=== PATIENT | male | born 1990 | race African-American/Black ===

== ENCOUNTER 2018-05-01 07:06 | Emergency (ER) | payer MEDICAID, OTHER ==
[~2018-05-01] VITALS: Ht 170.2 cm; Wt 81.6 kg
[2018-05-01] MEDS ORDERED: NKM (07:21)
[2018-05-01 07:23] VITALS: BP 132/81
--- NOTE | 2018-05-01 07:25 | NUR ---
ED Nurse Note: Patient present at ER c/o coughing for a week with thick and yellow mucus and 6/10 sore throat. patient aao x4 and calm.
[2018-05-01] MEDS ORDERED: Albuterol ud Inhalation HHN ONE (07:45)
--- NOTE | 2018-05-01 07:45 | Emergency Room Report ---
History of Present Illness General Chief Complaint: Upper Respiratory Illness Source: Patient Present Illness HPI This patient has had a week of rhinorrhea, nasal congestion, cough and sore throat. He denies ear pain. He denies headache or neck pain. He denies chest pain. He had subjective fever last night. He did take Motrin. He did not get the influenza vaccination. He denies blurry vision. He has no other complaints. Allergies: Coded Allergies: No Known Allergies (Unverified , 05/01/18) Patient History Past Medical History: see triage record, asthma - as a child Social History: Denies: smoking, alcohol use, drug use Reviewed Nursing Documentation: PMH: Agreed; PSxH: Agreed Nursing Documentation-PMH Past Medical History: No Stated History Review of Systems All Other Systems: negative except mentioned in HPI Physical Exam Vital Signs Date Time Temp Pulse Resp B/P (MAP) Pulse Ox O2 Delivery O2 Flow Rate FiO2 05/01/18 07:19 98.1 92 16 132/81 96 Room Air Sp02 EP Interpretation: reviewed, normal General Appearance: no apparent distress, alert, GCS 15, non-toxic Head: normocephalic, atraumatic Eyes: bilateral eye normal inspection, bilateral eye PERRL ENT: hearing grossly normal, no angioedema, normal voice, TMs + canals normal, uvula midline, moist mucus membranes, nasal congestion, tonsillar swelling, pharyngeal erythema, tonsillar exudate Neck: full range of motion, supple, supple/symm/no masses Respiratory: chest non-tender, lungs clear, normal breath sounds, no respiratory distress, no retraction, no accessory muscle use, speaking full sentences Cardiovascular #1: regular rate, rhythm, no edema Gastrointestinal: normal bowel sounds, non tender, soft, non-distended, no guarding, no rebound Rectal: deferred Genitourinary: normal inspection, no CVA tenderness Musculoskeletal: back normal, gait/station normal, normal range of motion, non- tender Neurologic: alert, oriented x3, responsive, motor strength/tone normal, sensory intact, speech normal Psychiatric: judgement/insight normal, memory normal, mood/affect normal, no suicidal/homicidal ideation Skin: normal color, no rash, warm/dry, well hydrated Medical Decision Making Diagnostic Impression: Primary Impression: Tonsillitis Additional Impressions: Pharyngitis Reactive airway disease ER Course This patient has a clinical presentation consistent with tonsillitis and pharyngitis. There is no evidence of peritonsillar abscess or deep neck abscess. There is no airway edema. Patient has a history of asthma and has a touch of wheezing with coughing on physical exam. The patient was given albuterol nebulizer treatments. The patient was also given prednisone orally. The patient had significant improvement in subjective shortness of breath. The patient's lung exam improved significantly. I will also treat the patient with a course of antibiotics as this has been shown to improve the course of an asthma exacerbation and also given the tonsillitis found on PE. The patient was given close return precautions and followup instructions. Influenza negative Chest X-Ray Diagnostic Results Chest X-Ray Diagnostic Results : Chest X-Ray Ordered: Yes # of Views/Limited/Complete: 1 View Indication: Other - cough Interpretation: no consolidation, no effusion, no pneumothorax, no acute cardiopulmonary disease Impression: No acute disease Electronically Signed by: Brunilda Marion DO Last Vital Signs Date Time Temp Pulse Resp B/P (MAP) Pulse Ox O2 Delivery O2 Flow Rate FiO2 05/01/18 07:23 92 16 Room Air 05/01/18 07:23 98.1 132/81 96 Status: improved Disposition: HOME, SELF-CARE Condition: Improved Brunilda Marion DO May 01, 2018 07:45
--- NOTE | 2018-05-01 08:00 | NUR ---
ED Nurse Note: called RT to remind about breathing tx. RT will come down soon.
--- NOTE | 2018-05-01 08:47 | Diagnostic Imaging Report ---
Indication: Cough Technique: One view of the chest Comparison: none Findings: Lungs and pleural spaces are clear. Heart size is normal Impression: No acute process
[2018-05-01] MEDS ORDERED: ALBUTEROL SULF8.5 GM INH (09:10)
[2018-05-01] MEDS ORDERED: PREDNISONE20 MG ORAL (09:10)
[2018-05-01] MEDS ORDERED: IBUPROFEN800 MG ORAL (09:10)
[2018-05-01] MEDS ORDERED: AUGMENTIN 875-1 EAC1 ORAL (09:10)
[2018-05-01 09:27] VITALS: BP 130/83
--- NOTE | 2018-05-01 09:28 | NUR ---
ED Nurse Note: Patient is being d/c from medical care. Patient awake, alert, oriented x 4. D/C instruction given. Prescriptions sent electronically. All questions were answered. Ambulated out with all his belongings, accompained by mom.
== END 2018-05-01 09:29 | disposition home or self-care (01) ==
LOC: EMR 08:10
DX: J03.90 Acute tonsillitis, unspecified (principal); J02.9 Acute pharyngitis, unspecified; J45.909 Unspecified asthma, uncomplicated
CPT/HCPCS: 71045; 86710; 94640; 99284; J7512

== ENCOUNTER 2019-02-04 09:00 | Emergency (ER) | payer OTHER ==
[~2019-02-04] VITALS: Ht 170.2 cm; Wt 68.0 kg
[~2019-02-04 09:00] MED LIST: ALBUTEROL SULF8.5 GM INH; AUGMENTIN 875-1 EAC1 ORAL; IBUPROFEN800 MG ORAL; NKM; PREDNISONE20 MG ORAL
--- NOTE | 2019-02-04 09:17 | NUR ---
ED Nurse Note: Patient arrived to ED from home, complaining of flu-like symptoms for the last 3 days. Patient currently afebrile, no nausea or vomiting.
[2019-02-04 09:19] VITALS: BP 134/83
[2019-02-04] MEDS ORDERED: Azithromycin 250mg tab ORAL ONE (09:30)
[2019-02-04] MEDS ORDERED: Pseudoephedrine 30mg tab ORAL ONE (09:30)
--- NOTE | 2019-02-04 09:32 | Emergency Room Report ---
History of Present Illness General Chief Complaint: Flu Like Symptoms Source: Patient Present Illness HPI He rates his pain 9/10 and aching. Patient has several days of upper respiratory symptoms along with diarrhea. He is an asthmatic and has been wheezing. He does not have an inhaler. He is not taking any medication. He has yellow discharge from his nose and green spots on his tonsils. No nausea or vomiting. He feels pressure underneath his eyes and has nasal congestion. He has some pain radiating down his anterior neck. No fevers, chills, chest pain, palpitations, nausea, vomiting, dysuria, abdominal pain, joint pain, rashes, depression, anxiety, visual changes, dizziness, headache. Allergies: Coded Allergies: No Known Allergies (Unverified , 05/01/18) Patient History Past Medical History: see triage record, asthma Social History: Reports: drug use - THC; Denies: smoking, alcohol use Social History Narrative Lives with his brother Reviewed Nursing Documentation: PMH: Agreed; PSxH: Agreed Nursing Documentation-PMH Past Medical History: No Stated History Review of Systems All Other Systems: negative except mentioned in HPI Physical Exam Vital Signs Date Time Temp Pulse Resp B/P (MAP) Pulse Ox O2 Delivery O2 Flow Rate FiO2 02/04/19 09:10 98.1 76 19 134/83 (100) 97 Room Air Sp02 EP Interpretation: reviewed, normal General Appearance: well appearing, no apparent distress, GCS 15 Head: normocephalic Eyes: bilateral eye normal inspection, bilateral eye PERRL, bilateral eye EOMI ENT: moist mucus membranes, pharyngeal erythema, tonsillar exudate Neck: full range of motion, supple, tender - Anterior muscles Respiratory: wheezing - Posttussive tussive Cardiovascular #1: regular rate, rhythm Cardiovascular #2: 2+ radial (R) Gastrointestinal: normal inspection Musculoskeletal: gait/station normal Neurologic: alert, grossly normal Psychiatric: mood/affect normal Skin: no rash Lymphatic: no adenopathy Medical Decision Making Diagnostic Impression: Primary Impression: Pharyngitis Qualified Codes: J02.9 - Acute pharyngitis, unspecified Additional Impression: Bronchospasm ER Course Patient with a history of asthma the presents with upper respiratory symptoms and diarrhea. Differential includes viral syndrome, strep, bronchospasm amongst others. Based on exam strep appears likely as there are exudates. Patient is treated with antibiotics and Sudafed here. Improved with treatment. Patient stable for outpatient observation and treatment. Last Vital Signs Date Time Temp Pulse Resp B/P (MAP) Pulse Ox O2 Delivery O2 Flow Rate FiO2 02/04/19 10:28 98.3 89 16 128/80 100 Room Air Status: improved Disposition: HOME, SELF-CARE Condition: Improved Scripts Chlorpheniramine Maleate (CHLOR-TRIMETON) 4 Mg Tablet 4 MG PO Q6HR PRN for congestion, #10 TAB Prov: Luis M Douglas MD 02/04/19 Azithromycin* (ZITHROMAX*) 250 Mg Tablet 250 MG ORAL DAILY, #4 TAB Prov: Luis M Douglas MD 02/04/19 Oxymetazoline HCl (Afrin) 15 Ml [place] 2 SPRAY NASAL TWICE A DAY, #1 SPRAY Prov: Luis M Douglas MD 02/04/19 Albuterol Sulfate* (ALBUTEROL SULFATE MDI*) 8.5 Gm Hfa.aer.ad 2 PUFF INH Q6H, #1 EA 0 Refills Prov: Luis M Douglas MD 02/04/19 Referrals: NOT CHOSEN IPA/,REFERRING (PCP) Luis M Douglas MD Feb 04, 2019 09:32
[2019-02-04] MEDS ORDERED: ALBUTEROL SULF8.5 GM INH (09:34)
[2019-02-04] MEDS ORDERED: AFRIN NASAL SPR30 ML NASAL (09:34)
[2019-02-04] MEDS ORDERED: ZITHROMAX250 MG ORAL (09:34)
[2019-02-04] MEDS ORDERED: CHLOR-TRIMETON4 MG PO (09:34)
[2019-02-04 10:28] VITALS: BP 128/80
--- NOTE | 2019-02-04 10:28 | NUR ---
ED Nurse Note: Patient cleared for discharge by ER MD, patient given prescriptions and verbalized understanding regarding discharge instructions.
== END 2019-02-04 10:28 | disposition home or self-care (01) ==
LOC: EMR 09:21
DX: J02.9 Acute pharyngitis, unspecified (principal); J98.01 Acute bronchospasm
CPT/HCPCS: Q0144; Z7502; 99283